=== PATIENT | male | born 1975 | race Caucasian/White ===

== ENCOUNTER 2019-03-27 13:27 | Emergency (ER) | payer OTHER ==
[2019-03-27 13:47] VITALS: BP 151/99
--- NOTE | 2019-03-27 14:20 | UC ---
Ear Complaint HPI - HPI Summary HPI Summary: 43-year-old male who has had cold symptoms for proximally 10 days. The past 3 days he's had a right earache. He has chronic problems with impacted cerumen as well. He denies any fever or chills. He also has sinus congestion with sinus pressure. - History of Current Complaint Chief Complaint: UCGeneralIllness Stated Complaint: EAR ACHE Time Seen by Provider: 03/27/19 13:39 Hx Obtained From: Patient Onset/Duration: Gradual Onset Severity Initially: Mild Severity Currently: Moderate Pain Intensity: 6 Aggravating Factors: Nothing Alleviating Factors: Nothing Associated Signs/Symptoms: Positive: URI Symptoms Related History: Smoking - Allergies/Home Medications Allergies/Adverse Reactions: Allergies Allergy/AdvReac Type Severity Reaction Status Date / Time Penicillins Allergy Hives Verified 03/27/19 13:47 PMH/Surg Hx/FS Hx/Imm Hx Previously Healthy: Yes - Surgical History Surgical History: Yes Surgery Procedure, Year, and Place: knee surgery - Family History Known Family History: Positive: Non-Contributory - Social History Occupation: Employed Full-time Alcohol Use: Rare Substance Use Type: None Smoking Status (MU): Current Every Day Smoker Review of Systems All Other Systems Reviewed And Are Negative: Yes ENT: Positive: Ear Ache, Nasal Discharge - Patient states he has had some thick yellowish green coryza., Sinus Congestion, Sinus Pain/Tenderness Respiratory: Positive: Cough - Tight cough at times, no history of asthma. Pt is a smoker. Is Patient Immunocompromised?: No Physical Exam Triage Information Reviewed: Yes Appearance: Well-Appearing, No Pain Distress, Well-Nourished Vital Signs: Initial Vital Signs Temp 97.7 F 03/27/19 13:41 Pulse 80 03/27/19 13:41 Resp 20 03/27/19 13:41 BP 151/99 03/27/19 13:41 Pulse Ox 95 03/27/19 13:41 Vital Signs Reviewed: Yes Eyes: Positive: Conjunctiva Clear ENT: Positive: Pharynx normal, Nasal congestion, Nasal drainage - Yellowish purulent nasal coryza, Sinus tenderness - Bilateral tenderness of the maxillary sinuses., Uvula midline, Other - Left tympanic membranes is pearly-rey with good land contreras and light reflex, unable to visualize right tympanic membrane because of cerumen in ear canal.. Negative: Tonsillar swelling, Tonsillar exudate, Trismus, Muffled voice, Hoarse voice Neck: Positive: Supple, Nontender, No Lymphadenopathy Respiratory: Positive: Lungs clear, Normal breath sounds, No respiratory distress, No accessory muscle use, Other: - Tight cough but lungs are clear to auscultation with good air movement. Cardiovascular: Positive: RRR, Pulses Normal, Brisk Capillary Refill, Murmur:Sys :Grade _?_/ - I/ heard over left upper sternal border Musculoskeletal Exam: Normal Musculoskeletal: Positive: Strength Intact, ROM Intact Neurological Exam: Normal Neurological: Positive: Alert, Muscle Tone Normal Psychological Exam: Normal Skin Exam: Normal Ear Complaint Course/Dx - Course Course Of Treatment: The right ear was lavaged by the nurse successfully, the right tympanic membrane is erythematous with poor landmarks and light reflex. The patient has no history of heart murmur however I did auscultate a 1/6 systolic murmur along the left upper sternal border. This was rechecked by Dr. Roger. The patient is to follow-up with his primary care provider regarding the new onset heart murmur. I'm starting him on doxycycline for treatment of sinusitis as well as right otitis media. His primary care provider is Dr. Hagan in [place]. - Differential Dx/Diagnosis Provider Diagnosis: Right otitis media, Impacted cerumen, right ear, Sinusitis Discharge ED - Sign-Out/Discharge Documenting (check all that apply): Patient Departure All imaging exams completed and their final reports reviewed: No Studies - Discharge Plan Condition: Fair Disposition: HOME Prescriptions: DOXYcycline CAP(*) [DOXYcycline 100MG CAP(*)] 100 mg PO BID 10 Days #20 cap Patient Education Materials: Sinusitis (ED), Ear Infection (ED), Heart Murmur ( ED) Referrals: No Primary Care Phys,NOPCP [Primary Care Provider] - Additional Instructions: Increase fluids. May alternate Tylenol every 4 hours with Motrin every 8 hours for pain or fever. No dairy products, antacids or multivitamins 2 hours before you take the doxycycline or 2 hours after you take the doxycycline however take it with food. Today we were able to hear a heart murmur. Since you have not had a history of a heart murmur it is important for you to call your primary care provider and make an appointment for a recheck and further testing. - Billing Disposition and Condition Condition: FAIR Disposition: Home
== END 2019-03-27 14:29 | disposition home or self-care (01) ==
LOC: UCEAST 13:27
DX: H66.91 Otitis media, unspecified, right ear (principal); H61.21 Impacted cerumen, right ear; J32.9 Chronic sinusitis, unspecified; F17.210 Nicotine dependence, cigarettes, uncomplicated; Z88.0 Allergy status to penicillin
CPT/HCPCS: 69209; 99202; G0463